=== PATIENT | female | born 1990 | race Caucasian/White ===

== ENCOUNTER 2018-12-18 21:36 | Emergency (ER) | payer SELFPAY ==
[~2018-12-18] VITALS: Ht 154.9 cm; Wt 75.0 kg
[2018-12-18 22:21] VITALS: BP 112/81
== END 2018-12-18 23:30 | disposition left against medical advice (07) ==
LOC: EMS 21:42
DX: S00.83XA Contusion of other part of head, initial encounter (principal); F12.90 Cannabis use, unspecified, uncomplicated; Y04.0XXA Assault by unarmed brawl or fight, initial encounter; Y93.89 Activity, other specified; Y92.89 Other specified places as the place of occurrence of the external cause; Y99.8 Other external cause status